=== PATIENT | female | born 1945 | race Caucasian/White ===

== ENCOUNTER 2024-06-05 05:58 | Day surgery (SDC) | payer OTHER, SELFPAY ==
[2024-05-29 12:40] VITALS: BMI 32.0
[2024-05-29 13:09] LABS: % Basophils 0.5 % (0-2); % Eosinophils 1.6 % (0-6); % Immature Granulocytes 0.3 % (0-0.5); % Lymphocytes 26.1 % (20.5-51.1); % Monocytes 7.8 % (1.7-9.3); % Neutrophils 63.7 % (42.2-75.2); Absolute Eosinophils 0.1 10^3/uL (0-0.7); Absolute Lymphocytes 1.9 10^3/uL (1.2-3.4); Absolute Monocytes 0.6 10^3/uL (0.1-0.6); Absolute Neutrophils 4.7 10^3/uL (1.4-6.5); Hematocrit 49.1 % (37.0-47.0); Hemoglobin 16.9 g/dL (12.0-16.0); Mean Corp Hgb Conc. 34.4 g/dL (33.0-37.0); Mean Corpuscular Hgb 33.9 pg (27.0-31.0); Mean Corpuscular Volume 98.6 fL (81.0-99.0); Mean Platelet Volume 9.5 fL (7.4-10.4); Nucleated Red Blood Cells % 0 %; Platelet Count 202 10^3/uL (130-400); Red Blood Cell Count 4.98 10^6/uL (4.20-5.40); Red Cell Dist. Width 12.7 % (11.5-14.5); White Blood Cell Count 7.3 10^3/uL (4.8-10.8)
[2024-05-29 13:17] LABS: INR 1.19; PT 15.4 Sec (11.4-14.6)
[2024-05-29 13:21] LABS: Albumin 4.7 g/dl (3.5-5.0)
[2024-05-29 13:36] LABS: ALT (SGPT) 23 U/L (0-35); AST (SGOT) 31 U/L (14-36); Alkaline Phosphatase 114 U/L (38-126); Blood Urea Nitrogen 49 mg/dl (7-17); Calcium 9.6 mg/dl (8.4-10.2); Carbon Dioxide 28 mmol/L (22-30); Chloride 102 mmol/L (98-107); Estimated Creatinine Clearance 47 ml/min; Glucose 113 mg/dl (70-99); Magnesium 2.3 mg/dl (1.6-2.3); Potassium 4.2 mmol/L (3.5-5.1); Sodium 142 mmol/L (135-145); Total Bilirubin 0.7 mg/dl (0.2-1.3); Total Protein 7.8 g/dl (6.3-8.2); eGFR 46.05
--- NOTE | 2024-06-01 14:46 | W.PN.UPDATE ---
Update Note
Progress Note Update
No evidence of left atrial thrombus
Mild cardiomegaly with left atrial chamber enlargement
9 mm calcified lymph node in the superior mediastinum
--phoned patient--faxed to PCP and LM
[2024-06-05] VITALS (22 sets, daily range): BP systolic 92–126; BP diastolic 52–97; BMI 32.0
[2024-06-05] MEDS: VENTOLIN NEBULES 2.5 MG INH (07:28)
[2024-06-05 09:07] LABS: ACT-LR - POC 244 Seconds (116-155)
[2024-06-05 09:30] LABS: ACT-LR - POC 260 Seconds (116-155)
--- NOTE | 2024-06-05 09:37 | ITS.CL.ABL ---
Engineering Department Chair - Ablation
Ablation
Procedure Report:
ELECTROPHYSIOLOGY ABLATION STUDY
�
DATE:: June 05, 2024�����������������������������REFERRING: Dr. Hector Tapia
�
INDICATION: Persistent supraventricular tachycardia in the form of atrial fibrillation.� Prior [address] Reynaga at [facility]
�
HISTORY: See H and P.� As above
�
ANTIARRHYTHMIC DRUG: Discussed class III and class I antiarrhythmics patient opted for pulmonary vein isolation
�
PRE-PROCEDURE GREG: No YOSELYN clot on CT prior CT
�
PRESENTING RHYTHM: Atrial fibrillation
�
'TIME-OUT':��called and confirmed.
�
SEDATION/ANESTHESIA:��provided via the anesthesia department using general anesthesia (LMA).
�
INTRAVENOUS/ARTERIAL ACCESS:
Right femoral venous - 8Fr
Left femoral venous - 8 Fr, 6 Fr
Ultrasound guidance for bilateral femoral vein access was utilized by me to obtain access with demonstration of normal anatomy
CHADS-VASC Score:
�
HAS-Bled Score
�
PROCEDURE:
1.��A decapolar CS catheter was placed within the CS for mapping and pacing.��This was also used as the reference catheter for the 3-D map. The pulmonary veins were connected at each vein from the prior pulmonary vein isolation from 2003.
�
2. The intracardiac ultrasound catheter was positioned in the RA to identify the FO for targeting of transseptal puncture, assist��in identification of the pulmonary vein ostia, monitoring pre and post ablation pulmonary vein flow velocities,
monitoring for 'bubble' formation during RF application as a sign of thermal injury,��and to monitor for pericardial effusion during mapping and ablation procedure.���Left atrial size, LV ejection fraction, and pulmonary vein flows were monitored
pre and post ablation procedure. The other valves were inspected and found to be free of significant regurgitation or stenosis.
�
3.��Half of the calculated heparin bolus was administered prior to the first transeptal puncture.��Transseptal puncture was performed to diagnose RA and LA pressure so that safety of LA mapping and ablation could be further assessed, and to access
the left atrium and pulmonary veins for mapping and ablation.��This entailed advancing an 16 [place] Contour with needle and with dilator into the superior vena cava and withdrawing both (monitoring intracardiac ultrasound, fluoroscopy and tip
pressure) with the tip oriented toward the atrial septum.��The fossa ovalis was engaged (indicated by sudden displacement of the sheath tip as well as tenting of the fossa seen on intracardiac ultrasound).��Left atrial access required a pass with
the [place] needle extended.��Left atrial catheter position was confirmed by pressure monitoring (RA mean pressure 8 mm Hg and LA mean presure 12 mm Hg), LA saturation (99%),��as well as fluoroscopy.��The sheath was advanced over the dilator
and positioned in the left atrium.��This procedure was repeated for the Agilis sheath.��The remainder of the calculated heparin bolus was administered and heparin was
infused to maintain ACT at 300 -350 seconds throughout the case.
�
4.��RA pacing was performed via the proximal decapolar poles and LA pacing was performed via the distal decapolr poles.
�
5. A quadrapolar catheter was first positioned at the His position for His Bundle recording which was tagged via the 3-D Navex sytem, and then passed to the RVA for RV pacing and recording.
�
6. The the left superior pulmonary vein was connected at the jesica, the left inferior pulm vein was connected at the inferior posterior region, the right superior pulmonary vein and right inferior pulm veins were connected at the septal jesica and
posterior wall with both multipolar and PFA into the LIPV, LSPV, RSPV and the RIPV.��
�
7.��Next, a 3-D map was created using Navex.���A 3-D reconstructed CT image was compared to the 3-D Navex map to assist in anatomic interpretation, mapping and ablation.��The CT image and the NavX image were fused.
�
8. A total of 82 lesions were given to the pulmonary veins and the left atrial posterior wall. Entrance block was confirmed in each of the 4 pulmonary veins and the posterior wall after first pass and after cardioversion there was entrance and
exit block in all 4 pulmonary veins and the left atrial posterior wall. No other extrapulmonary vein triggers for atrial fibrillation were noted.
9. Normal sinus node and AV node function noted.
�
�
TOTAL FLOURO TIME: 12.6 minutes 113 mGy
�
TOTAL RF DURATION: 0 minutes
�
REVERSAL OF HEPARIN: 30 mg of protamine, slow IV administration
�
COMPLICATIONS:
None
Intracardiac US shows no pericardial effusion post ablation.
�
SUMMARY:��
Complex left atrial mapping and ablation.
Pulmonary vein isolation of all 4 pulmonary veins and left atrial posterior wall isolation. All 4 veins were chronically reconnected from the 2003 procedure and will be isolated today as well as the left atrial posterior wall with electrical silence
�
RECOMMENDATIONS:
1. Admit to monitored bed.��
2. Resume anticoagulation
3.��Will add metoprolol 25 XL daily
4.��Nystatin swish and swallow
�
Copy to: Dr. Hector Tapia
�
--- NOTE | 2024-06-05 12:03 | PTCARENOTE ---
Rec'd Pt 1130, A,A+Ox3, denies pain, bilat femoral dsgs D+I. R femoral dsg has tiny amt of old drainage, previously marked, with no increase in drainage noted.
--- NOTE | 2024-06-05 12:42 | CM ---
Reviewed chart. Met with Mrs. Wong to review discharge plans. She states prior to admission she resides alone in a [facility]. She resides on the third floor. She states she uses the elevator to get to the third floor. She states
prior to admission she was independent with ambulation and adls. She states she has a CPAP Machine and no other DME in the home. She states she has a prescription plan. The discharge plan is to return home when medically stable.
[2024-06-05] MEDS: TOPROL XL 12.5 MG PO (15:07)
[2024-06-05] MEDS: LASIX 40 MG PO (15:09)
[2024-06-05] MEDS: SYNTHROID 137 MCG PO (15:09)
[2024-06-05] MEDS: MYCOSTATIN ORAL SUSPENSION 5 ML PO ×3 (15:09→22:17)
[2024-06-05] MEDS: ProAmatine 5 MG PO ×2 (16:38→22:17)
--- NOTE | 2024-06-05 17:50 | PTCARENOTE ---
Pt assisted OOB to BR, one 1/2 hour after figure of 8 sutures clipped without incident, chelo well.
[2024-06-05] MEDS: ELIQUIS 5 MG PO (19:52)
[2024-06-05] MEDS: ADVAIR HFA 115/21 MCG INHALER 2 PUFF INH (20:49)
[2024-06-05] MEDS: ZOLOFT 100 MG PO (22:17)
[2024-06-05] MEDS: LIPITOR 10 MG PO (22:17)
--- NOTE | 2024-06-05 23:26 | PTCARENOTE ---
Rec'd pt at change of shift. Pt AAO*3 and on TELE monitor in NSR with VSS. Pt with bilateral groin site CDI. Pt aware of activity restrictions and agreed not to cross legs. Pt denies any pain or discomfort. Pt with occasional productive cough
and asked for something to help with cough. SPRUE KNOCKER notified. Order recd for Susannah Moore. See MAR for admin details. Pt resting with call presley in reach. Plan of care ongoing.
[2024-06-05] MEDS: TESSALON PERLES 100 MG PO (23:32)
[2024-06-06 04:55] VITALS: BP 126/78
[2024-06-06 05:11] VITALS: BMI 32.3
[2024-06-06] MEDS: SYNTHROID 137 MCG PO (05:16)
[2024-06-06 05:38] LABS: Hematocrit 41.1 % (37.0-47.0); Hemoglobin 13.9 g/dL (12.0-16.0); Mean Corp Hgb Conc. 33.8 g/dL (33.0-37.0); Mean Corpuscular Hgb 34.4 pg (27.0-31.0); Mean Corpuscular Volume 101.7 fL (81.0-99.0); Mean Platelet Volume 9.6 fL (7.4-10.4); Platelet Count 150 10^3/uL (130-400); Red Blood Cell Count 4.04 10^6/uL (4.20-5.40); Red Cell Dist. Width 12.9 % (11.5-14.5); White Blood Cell Count 7.8 10^3/uL (4.8-10.8)
[2024-06-06 06:05] LABS: Blood Urea Nitrogen 43 mg/dl (7-17); Calcium 8.7 mg/dl (8.4-10.2); Carbon Dioxide 22 mmol/L (22-30); Chloride 108 mmol/L (98-107); Estimated Creatinine Clearance 57 ml/min; Glucose 126 mg/dl (70-99); Magnesium 2.2 mg/dl (1.6-2.3); Potassium 4.1 mmol/L (3.5-5.1); Sodium 140 mmol/L (135-145); eGFR 57.31
[2024-06-06 06:45] LABS: Hepatitis C Antibody Negative (Negative)
[2024-06-06] MEDS: ATROVENT NEBULES 0.5 MG INH (07:27)
[2024-06-06] MEDS: ADVAIR HFA 115/21 MCG INHALER 2 PUFF INH (07:27)
--- NOTE | 2024-06-06 07:29 | W.PN.CARDCBS ---
Addendum entered and electronically signed by Clemente Allen DO 06/06/24 10:10:
I saw and examined the patient.
The Machine Technician's note was reviewed and I agree with the note.
Comment:
Plan:
Remains sinus post PVI
New to Toprol
Cont anticoagulation
Outpt follow up with ATC
Stable for d/c
Discussed with nursing.
Original Note:
Today's Communication / Plan
-
OK for discharge
New to Toprol 25mg daily
Follow up w/ Dr. Tapia
Impression / Plan
-
PCP: Carmela CHOW
Cuff Turner: Dr. Tapia
Impression:
Persistent atrial fibrillation
prior ablation in 2003 @ [facility] [employer] Plan
Chronic Eliquis anticoagulation
Cardiomyopathy, EF 40-45%
Chronic HFrEF
COPD
HTN
HLD
Anxiety
MARVIN, on BiPAP
h/o DVT, PE 2023
Hypothyroidism
Plan:
-She has symptomatic persistent atrial fibrillation and underwent successful PVI and LAPW isolation 06/05/2024.
-Doing well overnight. Brief run of atach noted. Short lived and asymptomatic.
-Feeling well. b/l groin sites without ecchymosis, pain, or swelling.
-New to Toprol 25mg daily. HR and BP stable this AM.
-Continue Eliquis 5mg BID
-Continue lasix PO 40mg daily, midodrine 5mg TID, and simvastatin 10mg daily
-Follow up with Dr. Tapia arranged
-OK for discharge.
Progress Note - Cuff Turner
Subjective
Date of Service: June 06, 2024
No complaints. Feeling well this AM.
Objective
Labs:
06/06/24 05:08
06/06/24 05:08
Labs
Hgb 13.9 g/dL (12.0-16.0) 06/06/24 05:08
Hct 41.1 % (37.0-47.0) 06/06/24 05:08
Plt Count 150 10^3/uL (130-400) 06/06/24 05:08
PT 15.4 Sec (11.4-14.6) H 05/29/24 12:51
INR 1.19 05/29/24 12:51
Sodium 140 mmol/L (135-145) 06/06/24 05:08
Potassium 4.1 mmol/L (3.5-5.1) 06/06/24 05:08
BUN 43 mg/dl (7-17) H 06/06/24 05:08
Creatinine 1.0 mg/dL (0.6-1.0) 06/06/24 05:08
Glucose 126 mg/dl (70-99) H 06/06/24 05:08
Vital Signs and I&O:
Vital Signs
Temp Pulse Resp BP Pulse Ox
97.8 F 62 16 126/78 98
06/06/24 04:55 06/06/24 04:55 06/06/24 04:55 06/06/24 04:55 06/06/24 04:55
Vital Signs
Temp Pulse Resp BP Pulse Ox
97.8 F 62 16 126/78 98
06/06/24 04:55 06/06/24 04:55 06/06/24 04:55 06/06/24 04:55 06/06/24 04:55
Intake & Output
06/04/24 06/05/24 06/06/24 06/07/24
06:59 06:59 06:59 06:59
Intake Total 1480 / 1480
Balance 1480 / 1480
Physical Exam
Physical Exam
GEN: No distress, awake, alert, oriented x3
HEENT: supple, anicteric, mmm
LUNGS: CTA b/l, no wheezes/rales
CV: Reg, S1/S2, no murmur
EXT: No clubbing, cyanosis, or edema
NEURO: Gross non-focal
SKIN: Warm, dry, no rash
[2024-06-06 07:34] VITALS: BP 129/73
--- NOTE | 2024-06-06 07:39 | W.DS.TRANS ---
DC Summary - Back Wedger
-
Discharge Instructions:
Discharge Diagnosis/Procedures AFib, s/p ablation
Diet Low Cholesterol
Driving Restrictions No driving for 24 hours
Instructions:
Stand-Alone Forms: DC Instructions- Cath/EP Lab
Changes to Home Medications: Yes
Discharge Medications:
DC Medications w/original date entered in [facility]
albuterol sulfate 90 mcg/actuation aerosol inhaler 1 inh inhalation PRN PRN shortness of breath 05/27/24
apixaban 5 mg tablet (Eliquis) 5 mg PO BID 05/27/24
baclofen 10 mg tablet 10 mg PO PRN PRN neck pain/stiffness 05/27/24
fluticasone 250 mcg-salmeterol 50 mcg/dose blistr powdr for inhalation 1 inh inhalation BID 05/27/24
furosemide 40 mg tablet 40 mg PO DAILY 05/27/24
ipratropium bromide 18 mcg inhalation DAILY 05/27/24
krill oil 1 dose PO DAILY 05/27/24
levothyroxine 137 mcg tablet 137 mcg PO DAILY 05/27/24
midodrine 5 mg tablet 5 mg PO TID 05/27/24
sertraline 100 mg tablet 100 mg PO HS 05/27/24
simvastatin 20 mg tablet 20 mg PO HS 05/27/24
metoprolol succinate 25 mg tablet,extended release 24 hr 12.5 mg (1/2 x 25 mg) PO DAILY #90 tabs 06/05/24
Home Medication Changes
Metoprolol succinate is new
Pending Results: No
[2024-06-06] MEDS: MYCOSTATIN ORAL SUSPENSION 5 ML PO (09:53)
[2024-06-06] MEDS: ProAmatine 5 MG PO (09:54)
[2024-06-06] MEDS: ELIQUIS 5 MG PO (09:54)
[2024-06-06] MEDS: TOPROL XL 12.5 MG PO (09:54)
[2024-06-06] MEDS: LASIX PO (09:55)
== END 2024-06-06 11:54 | disposition home or self-care (01) ==
LOC: CATH 05:58
PROVIDERS: Nurse Practitioner; ATTENDING PHYSICIAN Internal Medicine Cardiovascular Disease; FAMILY PHYSICIAN Nurse Practitioner; OTHER PHYSICIAN Internal Medicine Cardiovascular Disease
DX: I48.19 Other persistent atrial fibrillation (principal); I47.10 Supraventricular tachycardia, unspecified; I11.0 Hypertensive heart disease with heart failure; I50.22 Chronic systolic (congestive) heart failure; I42.9 Cardiomyopathy, unspecified; E78.5 Hyperlipidemia, unspecified; E03.9 Hypothyroidism, unspecified; J44.9 Chronic obstructive pulmonary disease, unspecified; F41.9 Anxiety disorder, unspecified; G47.33 Obstructive sleep apnea (adult) (pediatric); E66.9 Obesity, unspecified; Z68.31 Body mass index [BMI] 31.0-31.9, adult; Z79.01 Long term (current) use of anticoagulants
CPT/HCPCS: C1732; C1894; C1730; C1769; C1892; C1759; C1733; C1766; 36415; 75572; 80048; 80053; 83735; 85025; 85027; 85347; 85610; 86803; 86850; 86900; 86901; 93005; 93656; 93657; 94640; Q9967